=== PATIENT | male | born 1985 | race African-American/Black ===

== ENCOUNTER 2017-07-27 16:05 | Emergency (ER) | payer BC, SELFPAY ==
[2017-07-27] MEDS ORDERED: Acetaminophen 500 MG TAB ONE (16:24)
[2017-07-27] MEDS ORDERED: HYDROcodone/Acetaminophen 10/325 mg Tablet ONE (20:10)
[2017-07-27] MEDS ORDERED: Naproxen 500 MG TAB ONE (20:11)
[2017-07-27] MEDS ORDERED: predniSONE 20 MG TAB ONE (20:11)
[2017-07-27] MEDS ORDERED: Benzonatate 100 MG CAP ONE (20:11)
[2017-07-27] MEDS ORDERED: AMOXicillin 250 MG CAP ONE (20:11)
== END 2017-07-27 20:19 | disposition home or self-care (01) ==
LOC: MADERS 16:05
DX: J20.9 Acute bronchitis, unspecified (principal); F17.210 Nicotine dependence, cigarettes, uncomplicated
CPT/HCPCS: 99283; J7506

== ENCOUNTER 2018-07-31 15:25 | Emergency (ER) | payer BC ==
[2018-07-31] MEDS ORDERED: Ibuprofen 800 MG TAB ONE (19:43)
== END 2018-07-31 19:45 | disposition home or self-care (01) ==
LOC: MADERS 15:25
DX: M54.5 Low back pain (principal); F17.210 Nicotine dependence, cigarettes, uncomplicated
CPT/HCPCS: 99283